=== PATIENT | male | born 1980 | race African-American/Black ===

== ENCOUNTER 2019-06-01 09:30 | Emergency (ER) | payer SELFPAY ==
[2019-06-01 09:41] VITALS: BMI 35.9
[2019-06-01] MEDS ORDERED: SODIUM CHLORIDE 1,000 ML IV STA (09:59)
[2019-06-01 10:23] LABS: BASO % 0.5 % (0-2.0); EOS % 3.2 % (0-4.5); HEMOGLOBIN 15.1 GM/dL (11.7-16.9); LYMPH % 20.9 % (8-40); MCH 27.4 pg (25.7-33.7); MCHC 33.4 g/dl (32.0-35.9); MEAN CELL VOLUME 81.9 fl (80-96); MEAN PLT VOLUME 9.6 fl (7.5-11.1); MONO % 8.5 % (3.8-10.2); NEUT % 66.9 % (42.8-82.8); PLATELET COUNT 197 K/MM3 (134-434); RDW 14.1 % (11.9-15.9); WHITE BLOOD COUNT 6.9 K/mm3 (4.0-10.0)
[2019-06-01 10:38] LABS: URINE APPEARANCE CLOUDY; URINE BILIRUBIN NEGATIVE (NEGATIVE); URINE COLOR YELLOW; URINE GLUCOSE (UA) NEGATIVE (NEGATIVE); URINE KETONE NEGATIVE (NEGATIVE); URINE LEUK ESTERASE NEGATIVE (NEGATIVE); URINE NITRITE NEGATIVE (NEGATIVE); URINE PROTEIN NEGATIVE (NEGATIVE); URINE UROBILINOGEN 0.2 mg/dL (0.2-1.0)
[2019-06-01 10:47] LABS: ALBUMIN 3.8 g/dl (3.4-5.0); BILIRUBIN,TOTAL 0.6 mg/dL (0.2-1); BLOOD UREA NITROGEN 13.6 mg/dL (7-18); CALCIUM 9.1 mg/dL (8.5-10.1); POTASSIUM 4.3 mmol/L (3.5-5.1); TOT PROT 7.5 g/dl (6.4-8.2)
--- NOTE | 2019-06-01 11:07 | PDOC ---
Documentation entered by Tracey Garrett SCRIBE, acting as scribe for Karla Day MD. Karla Day MD: This documentation has been prepared by the scribe, Tracey Garrett SCRIBE, under my direction and personally reviewed by me in its entirety. I confirm that the documentation accurately reflects all work, treatment, procedures, and medical decision making performed by me. Attending Attestation - Resident Resident Name: Jono Nielsen - ED Attending Attestation I have performed the following: I have examined & evaluated the patient, The case was reviewed & discussed with the resident, I agree w/resident's findings & plan, Exceptions are as noted - HPI HPI: 06/01/19 10:23 The patient is a 38-year-old male, with no past medical history, who presents to the ED with 3 days of loose, watery stools and abdominal pain. The patient experiences approximately 9-10x episodes daily; stools are yellow in color, no blood noted. Patient is able to tolerate PO, but states that he eventually passes everything he eats or drinks. The patient denies fever, chills, nausea, or vomiting. Denies chest pain, shortness of breath, headache and dizziness. Denies dysuria, frequency, urgency and hematuria. Allergies: NKA PCP: Dr. Acevedo - Physicial Exam PE: 06/01/19 10:24 GENERAL: Awake, alert, and fully oriented, in no acute distress HEAD: No signs of trauma EYES: PERRLA, EOMI, sclera anicteric, conjunctiva clear ENT: Auricles normal inspection, hearing grossly normal, nares patent, oropharynx clear without exudates. Moist mucosa NECK: Normal ROM, supple, no lymphadenopathy, JVD, or masses LUNGS: Breath sounds equal, clear to auscultation bilaterally. No wheezes, and no crackles HEART: Regular rate and rhythm, normal S1 and S2, no murmurs, rubs or gallops ABDOMEN: Soft, nontender, normoactive bowel sounds. No guarding, no rebound. No masses EXTREMITIES: Normal range of motion, no edema. No clubbing or cyanosis. No cords, erythema, or tenderness NEUROLOGICAL: Cranial nerves II through XII grossly intact. Normal speech, normal gait SKIN: Warm, Dry, normal turgor, no rashes or lesions noted. - Medical Decision Making 06/01/19 11:05 Pt presents to the ED complaining of a three day history of profuse watery diarrhea. Denies abdominal pain, nausea or vomiting. abdomen non tender on my exam. Will give IV hydration and check labs to rule out electrolyte disturbance. Will discharge home if labs are within normal limits.
--- NOTE | 2019-06-01 11:26 | PDOC ---
History of Present Illness - General Chief Complaint: Diarrhea Stated Complaint: Diarrhea/ ABD PAIN Time Seen by Provider: 06/01/19 09:46 History Source: Patient Exam Limitations: No Limitations - History of Present Illness Initial Comments: 06/01/19 10:20 Go Whyte is an otherwise healthy 38M presenting with 3 days of diarrhea. Patient reports starting to have new onset diarrhea starting 3 days ago, loose stools 10x per day, stools non-bloody and mostly yellow liquid with some scant solids. Denies sick contacts, any family at home also with diarrhea, recent ABx use, hospitalizations, or ingestion of spoiled foods. No PMH diarrhea, but presented to [facility] in 2012 with similar sx, got IVF and went home. Tolerating PO but anything he eats or drinks comes out as diarrhea. Has some tenesmus. Denies F/C, N/V, urinary sx, myalgias. Requests STD testing, no concerning sx, but was going to PCP today to get tested as part of annual workup but came here since he figured PCP would send him here anyways. Past History - Past Medical History Allergies/Adverse Reactions: Allergies Allergy/AdvReac Type Severity Reaction Status Date / Time No Known Allergies Allergy Verified 06/01/19 09:38 Home Medications: Ambulatory Orders NK [No Known Home Medication] 06/01/19 Anemia: No Asthma: No Cancer: No Cardiac Disorders: No CVA: No COPD: No CHF: No DVT: No Dementia: No GI Disorders: No Disorders: No HTN: No Hypercholesterolemia: No Kidney Stones: No Liver Disease: No Psychiatric Problems: No Seizures: No Thyroid Disease: No Lung CA: No - Immunization History Immunization Up to Date: Yes - Suicide/Smoking/Psychosocial Hx Smoking Status: No Smoking History: Current every day smoker Number of Cigarettes Smoked Daily: 1 Information on smoking cessation initiated: No Hx Alcohol Use: No Drug/Substance Use Hx: No Review of Systems - Review of Systems Constitutional: No: Chills, Fever HEENTM: No: Blurred Vision, Hearing Loss Respiratory: No: Cough, Shortness of Breath Cardiac (ROS): No: Chest Pain, Edema, Palpitations ABD/GI: Yes: Diarrhea. No: Abd. Pain w/ defecation, Blood Streaked Bowels, Constipated, Nausea, Vomiting : No: Burning, Dysuria, Discharge, Frequency, Flank Pain, Hematuria Musculoskeletal: No: Symptoms Reported Integumentary: No: Symptoms Reported Neurological: No: Symptoms reported Endocrine: No: Symptoms Reported Hematologic/Lymphatic: No: Symptoms Reported All Other Systems: Reviewed and Negative *Physical Exam - Vital Signs Last Vital Signs Temp Pulse Resp BP Pulse Ox 97.9 F 82 17 137/90 96 06/01/19 09:38 06/01/19 09:38 06/01/19 09:38 06/01/19 09:38 06/01/19 09:38 - Physical Exam General Appearance: Yes: Nourished, Appropriately Dressed. No: Apparent Distress HEENT: positive: EOMI, VALERIA, Symmetrical, Pharynx Normal. negative: Scleral Icterus (R), Scleral Icterus (L), Pharyngeal Erythema, Tonsillar Exudate, Tonsillar Erythema Neck: positive: Trachea midline, Normal Thyroid, Supple. negative: Tender, Lymphadenopathy (R), Lymphadenopathy (L) Respiratory/Chest: positive: Lungs Clear, Normal Breath Sounds. negative: Chest Tender, Respiratory Distress, Crackles, Rales, Rhonchi Cardiovascular: positive: Regular Rhythm, Regular Rate. negative: Edema, Murmur Gastrointestinal/Abdominal: positive: Normal Bowel Sounds, Soft. negative: Tender Musculoskeletal: positive: Normal Inspection. negative: CVA Tenderness Extremity: positive: Normal Capillary Refill, Normal Inspection, Normal Range of Motion, Tender Integumentary: positive: Normal Color, Dry, Warm Neurologic: positive: Fully Oriented, Alert, Normal Mood/Affect, Normal Response ED Treatment Course - LABORATORY CBC & Chemistry Diagram: 06/01/19 10:07 06/01/19 10:07 - ADDITIONAL ORDERS Additional order review: Laboratory Results 06/01/19 06/01/19 06/01/19 10:27 10:07 10:07 Sodium 139 Potassium 4.3 Chloride 106 Carbon Dioxide 24 Anion Gap 8 BUN 13.6 Creatinine 1.0 Est GFR (CKD-EPI)AfAm 110.17 Est GFR (CKD-EPI)NonAf 95.05 Random Glucose 94 Calcium 9.1 Total Bilirubin 0.6 AST 32 ALT 60 Alkaline Phosphatase 62 Total Protein 7.5 Albumin 3.8 Lipase 133 Urine Color Yellow Urine Appearance Cloudy Urine pH 5.0 D Ur Specific [employer] 1.018 Urine Protein Negative Urine Glucose (UA) Negative Urine Ketones Negative Urine Blood Negative Urine Nitrite Negative Urine Bilirubin Negative Urine Urobilinogen 0.2 Ur Leukocyte Esterase Negative 06/01/19 10:07 RBC 5.50 MCV 81.9 MCHC 33.4 RDW 14.1 MPV 9.6 Neutrophils % 66.9 Lymphocytes % 20.9 Monocytes % 8.5 Eosinophils % 3.2 D Basophils % 0.5 - Medications Given in the ED: ED Medications Discontinued Medications Generic Name Dose Route Start Last Admin Trade Name Freq PRN Reason Stop Dose Admin Sodium Chloride 1,000 mls @ 1,000 mls/hr 06/01/19 09:59 06/01/19 10:10 Normal Saline - IV 06/01/19 10:58 1,000 mls/hr ASDIR STA Administration Medical Decision Making - Medical Decision Making 06/01/19 10:20 Go Whyte is an otherwise healthy 38M presenting with 3 days of diarrhea. No known etiology of diarrhea, no high-risk or concerning activities reported including travel, recent Abx, etc. Likely gastroenteritis 2/2 food poisoning, will give 1L IVF NS bolus for fluid resuscitation. Getting CMP and CBC for infectious etiology and electrolyte abnormalities. Getting HIV/syphilis/G/C per patient request. 06/01/19 10:30 Lab reports HIV and RPR need clean tubes. Will re-draw. 06/01/19 10:45 HIV and RPR drawn. Pt finished IVF and feels clinically well, labs all WNL, will d/c home. *DC/Admit/Observation/Transfer Diagnosis at time of Disposition: Diarrhea Qualifiers: Diarrhea type: presumed infectious Qualified Code(s): R19.7 - Diarrhea, unspecified - Discharge Dispostion Disposition: HOME Condition at time of disposition: Improved Decision to Admit order: No - Referrals Referrals: Chris Acevedo MD, [Primary Care Provider] - - Patient Instructions Printed Discharge Instructions: DI for Diarrhea and Traveler's Diarrhea -- Adult Additional Instructions: Today you were evaluated for diarrhea. We checked your blood, and did not see any signs of infection or any concerning changes to your electrolytes. We gave you some IV fluids since you have been having diarrhea. You likely have food poisoning and your symptoms will improve in the next few days. In terms of your STD testing, we have performed tests for syphilis, HIV, gonorrhea, and chlamydia , and the results will be sent over the phone. Please follow-up with your primary doctor in the next 3 days. Continue to drink as much fluid such as soups or sugar-free sports drinks as you can tolerate to stay hydrated. If you continue to have diarrhea for over a week, feel lightheaded or weak, begin to have fevers, chills, nausea, or vomiting, or have any other new or concerning symptoms, please return to the closest emergency department. - Post Discharge Activity
[2019-06-01 13:39] VITALS: BP 144/93; PULSE 78; TEMP 98.3
== END 2019-06-01 13:45 | disposition home or self-care (01) ==
LOC: JER 09:30
PROC: 3E0337Z Introduction of Electrolytic and Water Balance Substance into Peripheral Vein, Percutaneous Approach (ICD-10-PCS; principal; 2019-06-01)
DX: R19.7 Diarrhea, unspecified (principal)
CPT/HCPCS: 36415; 80053; 81003; 83690; 85025; 86593; 87389; 87491; 87591; 99283-25; J7030